=== PATIENT | male | born 1970 | race Caucasian/White ===

== ENCOUNTER → 2018-08-01 | Outpatient (CLI) | payer OTHER ==
--- NOTE | 2018-08-01 15:27 | Diagnostic Imaging Report ---
MRI of the left ankle without contrast. History: Ankle pain. Crush injury. Medial wound. Technique: Utilizing a high-field 1.5T magnet, the following sequences were acquired: PD FS in all 3 planes with additional axial PD. Comparison: None. Findings: Achilles tendon and plantar fascia: Mild distal Achilles tendinosis without tear or retraction. The plantar fascial tissues are intact. Cartilage and bone: Negative for osteochondral lesion of the tibiotalar and subtalar joints. Negative for fracture, osteonecrosis, or stress related edema. Medial ankle: The deltoid ligament complex is intact. The medial flexor tendons are normal. There is a physiologic amount of fluid within the tendon sheath of FHL. Lateral ankle: The anterior talofibular, calcaneofibular, and posterior talofibular ligaments are intact. The syndesmotic ligaments are intact. 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 Anterior ankle: The anterior extensor tendons are normal. Other findings: Small tibiotalar joint effusion and mild synovitis. 1.7 cm skin defect/ulceration along the posterior medial aspect of the ankle with mild abnormal adjacent soft tissue edema best seen on series 3 image 22. No focal fluid collection. Impression: 1.7 cm skin defect/ulceration along the posterior medial aspect of the ankle with mild abnormal adjacent soft tissue edema. No focal fluid collection. 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 Signed by: Dr. Shaheen Rubio M.D. on 08/01/2018 3:23 PM
== END ==
LOC: MRI 13:44
PROVIDERS: ATTEND Podiatrist
DX: I87.2 Venous insufficiency (chronic) (peripheral) (principal); R60.0 Localized edema; S97.02XA Crushing injury of left ankle, initial encounter
CPT/HCPCS: 93922; 93925; 93970

== ENCOUNTER 2018-08-07 10:57 | Outpatient (RCR) | payer OTHER ==
[2018-07-13 17:32] LABS: BASOPHILS # (AUTO) 0.1 (0.0-0.1); BASOPHILS % 0.6 % (0.0-1.0); EOSINOPHILS # (AUTO) 0.3 (0.0-0.4); HEMATOCRIT 41.8 % (38.2-49.6); HEMOGLOBIN 14.4 g/dL (14.0-18.0); LYMPHOCYTES # (AUTO) 2.5 (1.0-3.2); LYMPHOCYTES % 28.8 % (18.0-39.1); MEAN CORPUSCULAR HEMOGLOBIN 29.1 pg (28-32); MEAN CORPUSCULAR HGB CONC 34.4 g/dL (31-35); MEAN CORPUSCULAR VOLUME 84.4 fL (81-99); MONOCYTES # (AUTO) 0.7 (0.2-0.8); MONOCYTES % 8.2 % (4.4-11.3); PLATELET COUNT 211 x10e3/uL (140-360); RED BLOOD COUNT 4.95 x10e6/uL (4.3-5.7); RED CELL DISTRIBUTION WIDTH 12.5 % (11.7-14.4)
[2018-07-13 17:48] LABS: ALANINE AMINOTRANSFERASE 49 IU/L (0-55); ALBUMIN 3.7 g/dL (3.5-5.0); ALKALINE PHOSPHATASE 89 IU/L (40-150); BLOOD UREA NITROGEN 15 mg/dL (7-26); BUN/CREATININE RATIO 14 (6-25); CALCIUM 10.2 mg/dL (8.4-10.2); CARBON DIOXIDE 24 mmol/L (22-29); CHLORIDE 105 mmol/L (98-107); EST GLOMERULAR FILTRATION RATE > 60 ML/MIN (60-); GLUCOSE 233 mg/dL (74-118); SODIUM 138 mmol/L (136-145)
[2018-07-13 18:08] LABS: ERYTHROCYTE SEDIMENTATION RATE 6 mm/hr (0-13)
[~2018-08-07 10:57] MED LIST: LIDOCAINE VISC 2% SOLN 15 ML UDC ONE; LIDOCAINE/PRILOCAINE 2.5-2.5% KIT ONE
[2018-08-10] MEDS ORDERED: LIDOCAINE VISC 2% SOLN 15 ML UDC ONE (18:17)
== END 2018-08-12 ==
LOC: EDBD → WCC 10:57
PROVIDERS: ATTEND Podiatrist
DX: M25.572 Pain in left ankle and joints of left foot (principal); S91.002A Unspecified open wound, left ankle, initial encounter; S97.02XA Crushing injury of left ankle, initial encounter; R60.0 Localized edema; R60.1 Generalized edema; I87.2 Venous insufficiency (chronic) (peripheral); I10 Essential (primary) hypertension
CPT/HCPCS: 36415; 80053; 83036; 84134; 85025; 85651; 86140

== ENCOUNTER → 2018-08-08 | Outpatient (CLI) | payer BC | LOC: EDBD → WCC 03:00 | PROVIDERS: ATTEND Podiatrist | DX: E13.69 Other specified diabetes mellitus with other specified complication (principal); S91.002A Unspecified open wound, left ankle, initial encounter; M25.572 Pain in left ankle and joints of left foot; M66.872 Spontaneous rupture of other tendons, left ankle and foot; M76.62 Achilles tendinitis, left leg; R60.0 Localized edema; R60.1 Generalized edema; I10 Essential (primary) hypertension; S97.02XA Crushing injury of left ankle, initial encounter ==

== ENCOUNTER 2018-08-10 01:00 | Outpatient (RCR) | payer OTHER | END 2018-08-12 | LOC: WCC 01:00 | PROVIDERS: ATTEND Podiatrist | DX: E13.69 Other specified diabetes mellitus with other specified complication (principal); M25.572 Pain in left ankle and joints of left foot; M66.872 Spontaneous rupture of other tendons, left ankle and foot; M76.62 Achilles tendinitis, left leg; R60.0 Localized edema; R60.1 Generalized edema; S91.002A Unspecified open wound, left ankle, initial encounter; I10 Essential (primary) hypertension; S97.02XA Crushing injury of left ankle, initial encounter ==

== ENCOUNTER 2018-09-10 13:15 | Outpatient (RCR) | payer OTHER | END 2018-09-11 | LOC: WCC 13:15 | PROVIDERS: ATTEND Podiatrist | DX: E13.69 Other specified diabetes mellitus with other specified complication (principal); M66.872 Spontaneous rupture of other tendons, left ankle and foot; M76.62 Achilles tendinitis, left leg; S91.002A Unspecified open wound, left ankle, initial encounter; M25.572 Pain in left ankle and joints of left foot; R60.1 Generalized edema; R60.0 Localized edema; I10 Essential (primary) hypertension; S97.02XA Crushing injury of left ankle, initial encounter ==

== ENCOUNTER → 2018-09-25 | Outpatient (CLI) | payer BC | LOC: WCC 13:29 | PROVIDERS: ATTEND Internal Medicine Infectious Disease | DX: E13.69 Other specified diabetes mellitus with other specified complication (principal); M72.2 Plantar fascial fibromatosis; M66.872 Spontaneous rupture of other tendons, left ankle and foot; M76.62 Achilles tendinitis, left leg; R60.1 Generalized edema; M25.572 Pain in left ankle and joints of left foot; I10 Essential (primary) hypertension; S91.002A Unspecified open wound, left ankle, initial encounter; R60.0 Localized edema; S97.02XA Crushing injury of left ankle, initial encounter ==

== ENCOUNTER 2018-09-28 13:52 | Outpatient (RCR) | payer OTHER | END 2018-10-12 | LOC: WCC 13:52 | PROVIDERS: ATTEND Podiatrist | DX: E13.69 Other specified diabetes mellitus with other specified complication (principal); M25.572 Pain in left ankle and joints of left foot; S91.002A Unspecified open wound, left ankle, initial encounter; M66.872 Spontaneous rupture of other tendons, left ankle and foot; M72.2 Plantar fascial fibromatosis; M76.62 Achilles tendinitis, left leg; R60.0 Localized edema; R60.1 Generalized edema; I10 Essential (primary) hypertension; S97.02XA Crushing injury of left ankle, initial encounter ==

== ENCOUNTER 2018-10-19 14:27 | Outpatient (RCR) | payer OTHER | END 2018-11-11 | LOC: WCC 14:27 | PROVIDERS: ATTEND Podiatrist | DX: E13.69 Other specified diabetes mellitus with other specified complication (principal); S91.002A Unspecified open wound, left ankle, initial encounter; M66.872 Spontaneous rupture of other tendons, left ankle and foot; M76.62 Achilles tendinitis, left leg; R60.0 Localized edema; M25.572 Pain in left ankle and joints of left foot; M72.2 Plantar fascial fibromatosis; I10 Essential (primary) hypertension; S97.02XA Crushing injury of left ankle, initial encounter ==